=== PATIENT | female | born 1990 | race Caucasian/White ===

== ENCOUNTER 2016-07-06 16:13 | Emergency (ER) | payer MEDICAID ==
[2016-07-06 16:27] VITALS: BP 144/68
[2016-07-06] MEDS ORDERED: NORMAL SALINE 1,000 ML IV ONE (17:24)
[2016-07-06] MEDS ORDERED: METOCLOPRAMIDE HCL 5 MG/ML VIAL IV ONE (17:24)
[2016-07-06] MEDS ORDERED: NALBUPHINE HCL 20 MG/ML AMPUL IV ONE (17:24)
[2016-07-06 17:29] LABS: Hematocrit 38.8 % (37.0-47.0); Hemoglobin 13.3 gm/dL (12.5-16.0); Mean Cell Volume 83.6 fl (78-100); Mean Corpuscular Hemoglobin 28.7 pg (27-31); Mean Corpuscular Hgb Conc 34.3 g/dl (32-36); Mean Platelet Volume 9.6 fl (6.0-9.5); Neutrophil # 10.3 K/mm3 (1.3-6.0); Neutrophil % 79.4 % (42-75.0); Platelet Count 299 K/mm3 (150-450); Red Blood Count 4.64 M/mm3 (4.2-5.4); Red Cell Distribution Width 13.3 % (11.5-14.0)
[2016-07-06 17:38] LABS: Albumin * 3.9 gm/dl (3.4-5.0); Anion Gap 18.5 mmol/L (6.8-13.8); BUN/Creatinine Ratio 10.4 (9.0-21.6); Bilirubin, Total 0.6 mg/dL (0.0-1.1); Ca. Corrected For Albumin 9.2 mg/dL (8.4-10.2); Calcium * 9.4 mg/dL (7.9-10.9); Carbon Dioxide 21.8 mmol/L (24-32.6); Potassium 3.3 mmol/L (3.4-4.6); Total Protein 7.6 gm/dL (6.2-8.2)
[2016-07-06 18:44] LABS: Urine Appearance Clear; Urine Bilirubin Negative (NEGATIVE); Urine Blood Negative /ul (NEGATIVE); Urine Color Yellow
[2016-07-06 18:45] LABS: Urine Bacteria None Seen; Urine Ketone Large mg/dL (NEGATIVE); Urine Nitrite Negative (NEGATIVE); Urine Protein 15 mg/dL (NEGATIVE); Urine RBC None Seen /hpf (0-5); Urine Urobilinogen Normal (NORMAL); Urine WBC 0-5 /hpf (0-5)
[2016-07-06] MEDS ORDERED: NALBUPHINE HCL 20 MG/ML AMPUL ONE (19:26)
[2016-07-06] MEDS ORDERED: METOCLOPRAMIDE HCL 5 MG/ML VIAL ONE (19:26)
--- NOTE | 2016-07-06 19:47 | ERNOTE ---
Abdominal HPI - Narrative Date of Service: 07/06/16 - General Chief Complaint: Abdominal Pain Time Seen by Provider: 07/06/16 17:16 Source: patient, RN notes reviewed Exam Limitations: no limitations - Immun/Allergies/Home Medications Immunizatons: IMMUNIZATION HX Immunizations Up to Date Yes History of Influenza Vaccine No Hx Pneumococcal Vaccination More Information Required Allergies/Adverse Reactions: Allergies azithromycin [From Zithromax] Allergy (Severe, Verified 07/06/16 16:27) Vomiting potassium clavulanate [From Augmentin] Allergy (Severe, Verified 07/06/16 16:27) amoxicillin trihydrate [From Augmentin] Allergy (Verified 07/06/16 16:27) rash Home Medications: HOME MEDICATIONS Ranitidine HCl [Zantac] 150 mg PO DAILY 08/23/13 [Last Taken 03/09/16] Acebutolol HCl [Sectral] 200 mg PO DAILY #30 capsule 03/19/16 [Last Taken Unknown] - History of Present Illness Narrative: Nina is a 25 year old female who presents to the ED for lower abdominal pain that began 2 days ago and has gradually been worsening. She reports having a positive home test. She is unsure of the date of her LMP. She also reports nausea but no vomiting. She did have diarrhea yesterday as well. She denies any vaginal bleeding. Review of Systems - Review of Systems Constitutional: Present: fatigue, malaise. Absent: fever, chills EYE: Present: no symptoms reported ENT: Present: no symptoms reported Respiratory: Absent: shortness of breath, cough Cardiology: Absent: chest pain, palpitations Gastrointestinal/Abdominal: Present: nausea, diarrhea, abdominal pain, eating less. Absent: vomiting, drinking less Genitourinary: Absent: frequency, dysuria Musculoskeletal: Absent: back pain, muscle pain Skin: Present: no symptoms reported Neurological: Absent: headache, dizziness/light-headedness Endocrine: Present: no symptoms reported Hematologic/Lymphatic: Present: no symptoms reported Psych: Present: no symptoms reported - Patient's Past Medical History Patient History - Medical: Anxiety, Depression, GERD, Migraines, UTI'S, Other Patient History - Cardiac/Respiratory: Hypertension, Other - syncope Patient History - Cancer: No Hx of Cancer Patient History - Surgical Procedures: Back Surgery, , T & A, Other LMP (females 10-50): - Family History Grandfather-Paternal Family History - Medical: No pertinent hx Family History - Cardiac/Respiratory: CHF Family History - Cancer: No Hx of cancer Grandfather-Maternal Family History - Medical: No pertinent hx Family History - Cardiac/Respiratory: Coronary Heart Disease, CHF, Hypertension Family History - Cancer: Lung Grandmother-Maternal Family History - Medical: Diabetes Type 2, Fibromyalgia, Other Family History - Cardiac/Respiratory: Hypertension Family History - Cancer: Cervical, Other - ovarian Mother Family History - Medical: Diabetes Type 2, Other Family History - Cardiac/Respiratory: Hypertension Family History - Cancer: Cervical Sister Family History - Medical: No pertinent hx Family History - Cardiac/Respiratory: Hypertension Family History - Cancer: No Hx of cancer Brother Family History - Medical: ADHD Family History - Cardiac/Respiratory: No pertinent hx Family History - Cancer: No Hx of cancer - Social History Living Situations: home Smoking Status: Never smoker Have you smoked in the past 12 months: No Alcohol Use: rarely Drug Use: none Physical Exam - Physical Exam General Appearance: Present: wd/wn, alert, other - Disheveled, appears uncomfortable Neck: Present: normal inspection, nontender, supple Respiratory: Present: no respiratory distress, normal breath sounds, no accessory muscle use, lungs clear Cardiovascular/Chest: Present: regular rate, rhythm, no murmur, normal peripheral pulses Gastrointestinal/Abdominal: Present: normal bowel sounds, nondistended, soft, tenderness - suprapubic Back Exam: Present: normal inspection, no CVA tenderness Neurological Exam: Present: alert, oriented, normal mood/affect Skin Exam: Present: normal color, warm/dry ED Progress - Results and Orders Patient's Lab Results:: I have reviewed the patient's lab results. - Vital Signs Patient's Vital Signs:: I have reviewed the patient's vital signs. Vital Signs: Vital Signs 07/06/16 16:24 Temperature 36.9 C Pulse Rate 108 H Respiratory 16 Rate Blood Pressure 144/68 O2 Sat by Pulse 100 Oximetry - CT/Ultrasound CT/Ultrasound Narrative: OB US: Single live IUP 10 wks 6 days with FHR 171 EDC 01/26/17 - Progress/Reassessment Chief Complaint: Abdominal Pain Progress:: Improved Departure - Departure Clinical Impression: Abdominal pain during in first trimester Disposition: Home Follow Up Needed Condition: Good Instructions: First Trimester of Additional Instructions: Increase fluid intake OK to take Tylenol for pain Start a vitamin [facility] Return if symptoms worsen Referrals: Elena Mead DO [Staff Physician] -
== END 2016-07-06 20:44 | disposition home or self-care (01) ==
LOC: ER 16:13
DX: O26.891 Other specified pregnancy related conditions, first trimester (principal); Z3A.10 10 weeks gestation of pregnancy; K21.9 Gastro-esophageal reflux disease without esophagitis; I10 Essential (primary) hypertension

== ENCOUNTER 2016-08-26 20:00 | Emergency (ER) | payer MEDICAID ==
--- OUTSIDE RECORDS SUMMARY | 2016-08-26 20:31 | XMS REPORT | Continuity of Care Document ---
:1990 Author Organization [facility] ([facility]) Address [address] [place] [address] Phone [phone] Care Team Providers Name Role Phone Bandar Villegas Primary Care Provider [phone] Source Comments This disclosure is being made pursuant to the Care Everywhere program, applicable federal and state laws, and may not contain all informaitonavailable regarding this patient.[facility] ([facility]) Active Allergies and Adverse Reactions Allergen Noted Date Severity Reactions Comments Amoxicillin Urticaria (Hives) Azithromycin Nausea & Vomiting Potassium Clavulanate Urticaria (Hives) Current Medications Prescription Sig. Disp. Refills Start Date End Date Status montelukast (SINGULAIR) 10 take 10 mg by Active mg tablet mouth daily. loratadine (CLARITIN) 10 mg Take 10 mg by Active tablet mouth daily. norethindrone (NOR-Q.D.) Take 1 Tab by Active 0.35 mg tablet mouth daily. ranitidine (ZANTAC) 150 mg Take 150 mg by Active tablet mouth daily. SERTRALINE HCL (ZOLOFT PO) Take by mouth Active daily. CARISOPRODOL (SOMA PO) Take by mouth Active daily. acebutolol (SECTRAL) 200 mg Take 200 mg by Active capsule mouth daily. SODIUM CHLORIDE PO Take 3 Tabs by Active mouth daily. BISACODYL (DULCOLAX PO) Take by mouth Active daily. Vitamin C-Vitamin E Take by mouth Active (CRANBERRY CONCENTRATE) cap daily. cholecalciferol (VITAMIN Take 5,000 Units Active D3) 5,000 unit tablet by mouth daily. ibuprofen (IBUPROFEN IB) Take 200 mg by Active 200 mg tablet mouth every 6 hours as needed. Active Problems Problem Noted Date Headache(784.0) 09/27/2008 Urinary tract infection, site not specified 09/08/2008 Other constipation 01/27/2007 Chest pain, unspecified 10/01/2004 Arthrodesis status 11/13/2003 Pain in thoracic spine 10/16/2003 Scoliosis (and kyphoscoliosis), idiopathic 12/08/2002 Immunizations Name Dates Previously Given Next Due Hepatitis B, unspecified 02/01/1996 Social History Tobacco Use Types Packs/Day Years Used Date Never Smoker Last Filed Vital Signs Vital Sign Reading Time Taken Blood Pressure 118/73 12/21/2008 9:23 AM CDT Pulse 76 12/21/2008 9:23 AM CDT Temperature 37.2 C (98.96 F) 10/27/2008 3:41 PM CDT Respiratory Rate 16 02/09/2007 8:46 AM CDT Height 1.71 m (5' 7.32") 05/05/2008 11:00 AM CDT Weight 62.5 kg (137 lb 12.6 oz) 12/21/2008 9:23 AM CDT Body Mass Index 21.37 12/21/2008 9:23 AM CDT Oxygen Saturation - - Plan of Care Health Maintenance Due Date Last Done Comments Hepatitis B Vaccine (2 of 3 - Primary Series) 02/29/1996 02/01/1996 Tdap Vaccine 1999 Cervical Cancer Screening 2006 Lipid Disorder Screening 2006 MMR Vaccine 2006 Td Vaccine 2006 Varicella Vaccine (1 of 2 - Adult - No Evidence of 2006 Immunity) Influenza Vaccine: Seasonal (#1) 02/04/2016 Results from Last 3 Months Not on file
[2016-08-26] MEDS ORDERED: diphenhydrAMINE HCL 50 MG/ML VIAL IM ONE (21:12)
[2016-08-26] MEDS ORDERED: METOCLOPRAMIDE HCL 5 MG/ML VIAL IV ONE (21:12)
[2016-08-26] MEDS ORDERED: diphenhydrAMINE HCL 50 MG/ML VIAL ONE (21:19)
[2016-08-26] MEDS ORDERED: METOCLOPRAMIDE HCL 5 MG/ML VIAL ONE (21:19)
[2016-08-26] MEDS ORDERED: METOCLOPRAMIDE HCL 5 MG/ML VIAL IM ONE (21:22)
--- NOTE | 2016-08-26 21:22 | ERNOTE ---
Headache ER HPI - Narrative Date of Service: 08/26/16 - General Presenting Symptoms: headache Time Seen by Provider: 08/26/16 20:55 Source: patient, RN notes reviewed Exam Limitations: no limitations - Immun/Allergies/Home Medications Immunizations: IMMUNIZATION HX Immunizations Up to Date Yes History of Influenza Vaccine No Hx Pneumococcal Vaccination More Information Required Allergies/Adverse Reactions: Allergies azithromycin [From Zithromax] Allergy (Severe, Verified 07/06/16 16:27) Vomiting potassium clavulanate [From Augmentin] Allergy (Severe, Verified 07/06/16 16:27) amoxicillin trihydrate [From Augmentin] Allergy (Verified 07/06/16 16:27) rash Home Medications: HOME MEDICATIONS Ranitidine HCl [Zantac] 150 mg PO DAILY 08/23/13 [Last Taken 03/09/16] Acebutolol HCl [Sectral] 200 mg PO DAILY #30 capsule 03/19/16 [Last Taken Unknown] - History of Present Illness Narrative: 25 y/o female ambulatory to the ED for a headache that began earlier today. The headache was proceeded by an episode of wavy lines in her vision that resolved when the pain began. She has taken Tylenol without improvement. She has had migraine headaches in the past, but never with an aura. She is 19 weeks and was just seen in the walk in clinic yesterday for diarrhea. Date (Duration): 08/26/16 Time (Timing): 08:00 Timing of Headache: abrupt, still present, constant Context Headache: Present: new onset Quality: Present: achy, stabbing Severity Maximum: Present: severe Severity-Currently: Present: moderate Headache frequency: Present: occasional headaches, similar to previous headache Associated Symptoms: Reports: nausea, fatigue. Denies: fever/chills, vomiting, nasal congestion, nasal drainage, facial pain, weakness, numbness/tingling, confusion, light-headedness, dizziness, neck pain/stiffness Review of Systems - Review of Systems Constitutional: Present: recent illness, fatigue. Absent: fever, chills EYE: Present: blurred vision. Absent: eye pain, eye discharge ENT: Present: See HPI Respiratory: Absent: cough, wheezing Cardiology: Present: no symptoms reported Gastrointestinal/Abdominal: Present: nausea. Absent: vomiting, eating less, drinking less Genitourinary: Present: no symptoms reported Musculoskeletal: Absent: muscle pain, neck pain Skin: Absent: rash, lesions Neurological: Present: See HPI Endocrine: Present: no symptoms reported Hematologic/Lymphatic: Present: no symptoms reported Psych: Present: no symptoms reported - Patient's Past Medical History Patient History - Medical: Anxiety, Depression, GERD, Migraines, UTI'S, Other Patient History - Cardiac/Respiratory: No pertinent hx Patient History - Cancer: No Hx of Cancer Patient History - Surgical Procedures: Back Surgery, , T & A, Other Patient History - Other: None LMP (females 10-50): - Family History Grandfather-Paternal Family History - Medical: No pertinent hx Family History - Cardiac/Respiratory: CHF Grandfather-Maternal Family History - Medical: No pertinent hx Family History - Cardiac/Respiratory: Coronary Heart Disease, CHF, Hypertension Grandmother-Maternal Family History - Medical: Diabetes Type 2, Fibromyalgia, Other Family History - Cardiac/Respiratory: Hypertension Mother Family History - Medical: Diabetes Type 2, Other Family History - Cardiac/Respiratory: Hypertension Sister Family History - Medical: No pertinent hx Family History - Cardiac/Respiratory: Hypertension Brother Family History - Medical: ADHD Family History - Cardiac/Respiratory: No pertinent hx - Social History Living Situations: home Abuse History: No History of abuse Psych History: Hx of Anxiety, Hx of Depression Alcohol Use: rarely Drug Use: none - Immunizations Immunizations Up to Date: Yes Hx Pneumococcal Vaccination: More Information Required to Determine History of Influenza Vaccine: No Physical Exam - Physical Exam General Appearance: Present: wd/wn, alert, no apparent distress Eye Exam: Normal inspection: bilateral, PERRL: bilateral, EOMI: bilateral Ears, Nose, Throat: Present: normal ENT inspection, hearing grossly normal, normal pharynx. Absent: abnormal TM (R), abnormal TM (L), nasal congestion, sinus pain/drainage Neck: Present: normal inspection, nontender, supple, full range of motion Respiratory: Present: no respiratory distress, normal breath sounds, no accessory muscle use, lungs clear Cardiovascular/Chest: Present: regular rate, rhythm, no murmur, normal peripheral pulses Extremity Exam: Present: normal inspection, no edema Neurological Exam: Present: alert, oriented, normal mood/affect, no motor/ sensory deficits Skin Exam: Present: normal color, warm/dry ED Progress - Vital Signs Patient's Vital Signs:: I have reviewed the patient's vital signs. - Progress/Reassessment Chief Complaint: Headache Progress:: Improved Departure Clinical Impression: Migraine Qualifiers: Migraine type: with aura Status migrainosus presence: without status migrainosus Intractability: not intractable Qualified Code(s): G43.109 - Migraine with aura, not intractable, without status migrainosus - Departure Disposition: Home Follow Up Needed Condition: Stable Instructions: Migraine Headache, [id number], Form - Excuse from Work, School , or Physical Activity Referrals: Marly Samaniego MD [Primary Care Provider] -
[2016-08-26 22:03] VITALS: BP 138/70
== END 2016-08-26 21:50 | disposition home or self-care (01) ==
LOC: ER 20:00
DX: G43.109 Migraine with aura, not intractable, without status migrainosus (principal); K21.9 Gastro-esophageal reflux disease without esophagitis

== ENCOUNTER 2017-01-16 14:41 | Inpatient (IN) | payer MEDICAID ==
[2017-01-16] MEDS ORDERED: RINGERS SOLUTION,LACTATED 1,000 ML IV PRN ×2 (17:00)
[2017-01-16] MEDS ORDERED: OXYTOCIN 20 UNITS in RINGERS SOLUTION,LACTATED 1,000 ML IV ONE ×2 (17:00→22:36)
[2017-01-16] MEDS ORDERED: ceFAZolin SODIUM/DEXTROSE,ISO 2 GM/50 ML BAG IV ONE (17:46)
[2017-01-16] MEDS ORDERED: RINGERS SOLUTION,LACTATED 1,000 ML IV ONE ×2 (22:00→23:15)
[2017-01-16] MEDS ORDERED: ONDANSETRON HCL/PF 2 MG/ML VIAL IV PRN (23:39)
[2017-01-16] MEDS ORDERED: BISACODYL 10 MG SUPP.RECT RC PRN (23:39)
[2017-01-16] MEDS ORDERED: oxyCODONE HCL/ACETAMINOPHEN 1 TAB TABLET PO PRN (23:39)
[2017-01-16] MEDS ORDERED: SENNOSIDES 8.6 MG TABLET PO PRN (23:39)
[2017-01-16] MEDS ORDERED: SIMETHICONE 80 MG TAB.CHEW PO PRN (23:39)
--- NOTE | 2017-01-16 23:46 | OR ---
Operative Report - Dictated Report Narrative: Indication: 26-year-old 3 para 2 at 38-2/7 weeks found to have oligohydramnios on routine follow-up growth ultrasound and possible premature ruptured membranes. Pre Operative Diagnosis: 38-2/7 week intrauterine , oligohydramnios with possible premature ruptured membranes, prior section 2 Post Operative Diagnosis: Same. Procedure: Repeat low transverse section. Surgeon: Tao Reis DO Core Worker: OR Staff Anesthesia: Spinal, TAP block requested for post operative pain control Estimated Blood Loss: 300 mL Urine Output: 350 mL clear urine Fluids Replacement: 1600 mL Drains: Regalado to gravity Surgical Complications: None Specimens: Placenta to freezer Findings: Female in cephalic presentation born at 2236 on 01/16/2019 with Apgars 8 and 9, weighing 3107 grams. Right arm cord x 1. Normal uterus, tubes, ovaries Technique: The patient was taken to the operating room and placed in dorsal supine position with a left lateral tilt. After adequate spinal anesthesia, regalado catheter inserted, SCDs placed, and 2 g of Ancef given preoperatively, the abdominal cavity was entered using sharp and blunt dissection. Two rolled laps were placed in the pericolic gutters on either side of the uterus. A transverse incision was made in the lower uterine segment and extended laterally and upwardly with digital traction. Clear fluid was noted upon amniotomy. The infant was delivered easily. The cord was clamped and cut and was handed off to awaiting interceptor operator. The placenta was allowed to deliver spontaneously. The uterus was cleared of clot and debris. Uterine incision was closed with 0 Vicryl using a running stitch. A second imbricating layer was placed. Excellent hemostasis was noted. The rolled laps were removed from the abdominal cavitiy. The peritoneum was closed with a running 3- 0 Monocryl. The same suture was used to approximate the rectus and pyramidalis muscles. The fascia was closed with a running 0 Vicryl. The subcutaneous layer was closed with a running 3-0 Monocryl. The same suture was used to approximate the subdermal layer. The skin was closed with a running 4-0 Monocryl and Dermabond. Sponge, lap, needle, and instrument count were correct x 2. Disposition: To post anesthesia care unit in good condition
[2017-01-17] MEDS: IBUPROFEN 800 MG TABLET PO PRN ×4 (00:05→23:30)
[2017-01-17] MEDS: oxyCODONE HCL/ACETAMINOPHEN 1 TAB TABLET PO PRN ×5 (00:05→23:30)
[2017-01-17] MEDS: ENOXAPARIN SODIUM 40 MG/0.4 ML SYRG SC SCH (08:18)
[2017-01-17] MEDS: ACEBUTOLOL HCL 200 MG CAPSULE PO SCH (08:25)
[2017-01-17] MEDS: DOCUSATE SODIUM 100 MG CAPSULE PO SCH ×2 (08:25→21:02)
--- NOTE | 2017-01-17 09:12 | PN ---
Subjective - Date and Time Seen Date: 01/17/17 Time: 09:11 Objective - Vitals Vitals: Last Vital Signs Temp 36.0 C L 01/17/17 03:39 Pulse 109 H 01/17/17 03:39 Resp 18 01/17/17 03:39 BP 132/67 01/17/17 03:39 Pulse Ox 97 01/17/17 03:39 Patient denies complaints. Tolerating regular diet. Ambulating without difficulty. Pain well controlled. Lochia wnl. Abdomen - soft, appropriately tender Incision - clean, dry, intact Uterus - firm, at umbilicus -1 No calf tenderness Impression: Post op day #1 s/p repeat section done 4 days early due to oligohydramnios with possible ruptured membranes. Nasal depressive syncope- stable. Plan: Continue routine post-operative/ care Cauti Physician Documentation - Urinary Catheter Management Urethral (Yarbrough) Date of Insertion: 01/16/17 Time of Insertion: 22:15
[2017-01-17] MEDS: PRENATAL VIT#96/FERROUS FUM/FA 1 TAB TABLET PO SCH (21:02)
[2017-01-17] MEDS: VITAMIN B COMP W-C 1 TAB TABLET PO SCH (21:07)
--- NOTE | 2017-01-18 09:08 | PN ---
Subjective - Date and Time Seen Date: 01/18/17 Time: 09:07 Objective - Vitals Vitals: Last Vital Signs Temp 36.8 C 01/18/17 01:00 Pulse 75 01/18/17 01:00 Resp 16 01/18/17 01:00 BP 135/78 01/18/17 01:00 Pulse Ox 98 01/18/17 01:00 Patient denies complaints. Ambulating well. Tolerating regular diet. Pain well controlled. Lochia wnl. Abdomen - soft, appropriately tender Incision - clean, dry, intact Uterus - firm, at umbilicus -2 No calf tenderness Impression: Post op day #2 s/p repeat section. Vasodepressive syncope - stable Plan: Continue routine post-operative/ care Cauti Physician Documentation - Urinary Catheter Management Urethral (Yarbrough) Date of Insertion: 01/16/17 Time of Insertion: 22:15 Date of Removal: 01/17/17 Time of Removal: 11:48
[2017-01-18] MEDS: ENOXAPARIN SODIUM 40 MG/0.4 ML SYRG SC SCH (09:23)
[2017-01-18] MEDS: IBUPROFEN 800 MG TABLET PO PRN ×2 (09:25→18:52)
[2017-01-18] MEDS: oxyCODONE HCL/ACETAMINOPHEN 1 TAB TABLET PO PRN ×2 (09:25→18:51)
[2017-01-18] MEDS: ACEBUTOLOL HCL 200 MG CAPSULE PO SCH (09:25)
[2017-01-18] MEDS: DOCUSATE SODIUM 100 MG CAPSULE PO SCH ×2 (09:25→21:02)
[2017-01-18] MEDS: PRENATAL VIT#96/FERROUS FUM/FA 1 TAB TABLET PO SCH (21:02)
[2017-01-18] MEDS: VITAMIN B COMP W-C 1 TAB TABLET PO SCH (21:02)
[2017-01-19] MEDS: oxyCODONE HCL/ACETAMINOPHEN 1 TAB TABLET PO PRN ×2 (08:11→12:29)
[2017-01-19] MEDS: IBUPROFEN 800 MG TABLET PO PRN (08:11)
[2017-01-19] MEDS: ENOXAPARIN SODIUM 40 MG/0.4 ML SYRG SC SCH (08:52)
[2017-01-19] MEDS: ACEBUTOLOL HCL 200 MG CAPSULE PO SCH (08:52)
[2017-01-19] MEDS: DOCUSATE SODIUM 100 MG CAPSULE PO SCH (08:52)
--- NOTE | 2017-01-19 09:17 | PN ---
Subjective - Date and Time Seen Date: 01/19/17 Time: 09:16 Objective - Vitals Vitals: Last Vital Signs Temp 36.6 C 01/19/17 03:00 Pulse 72 01/19/17 03:00 Resp 17 01/19/17 03:00 BP 124/70 01/19/17 03:00 Pulse Ox 95 01/19/17 03:00 Patient denies complaints. Ambulating without difficulty. Tolerating regular diet. Pain well controlled. Lochia wnl. Abdomen - soft, appropriately tender Incision - clean, dry, intact Uterus - firm, at umbilicus -3 No calf tenderness Impression: Post op day #3 s/p repeat section. Vasodepressive syncope -stable Plan: Routine discharge instructions Cauti Physician Documentation - Urinary Catheter Management Urethral (Yarbrough) Date of Insertion: 01/16/17 Time of Insertion: 22:15 Date of Removal: 01/17/17 Time of Removal: 11:48
[2017-01-19 09:25] VITALS: BP 112/73
== END 2017-01-19 15:45 | disposition home or self-care (01) | DRG 765 ==
LOC: RAD 14:41 → OB 16:45 → MS 01-18 18:25
PROVIDERS: ADMIT Obstetrics & Gynecology; ATTEND Obstetrics & Gynecology
PROC: 4A1HXCZ Monitoring of Products of Conception, Cardiac Rate, External Approach (ICD-10-PCS; 2017-01-16)
PROC: 10D00Z1 Extraction of Products of Conception, Low, Open Approach (ICD-10-PCS; principal; 2017-01-16 21:53)
DX: O41.03X0 Oligohydramnios, third trimester, not applicable or unspecified (principal); O10.02 Pre-existing essential hypertension complicating childbirth; O69.81X0 Labor and delivery complicated by cord around neck, without compression, not applicable or unspecified; O34.211 Maternal care for low transverse scar from previous cesarean delivery; K21.9 Gastro-esophageal reflux disease without esophagitis; J45.909 Unspecified asthma, uncomplicated; Z3A.38 38 weeks gestation of pregnancy; Z37.0 Single live birth

== ENCOUNTER 2017-01-27 14:58 | Emergency (ER) | payer MEDICAID ==
[2017-01-27 15:21] VITALS: BP 116/80
[2017-01-27] MEDS ORDERED: KETOROLAC TROMETHAMINE 30 MG/ML VIAL IM ONE (15:21)
[2017-01-27] MEDS ORDERED: KETOROLAC TROMETHAMINE 30 MG/ML VIAL ONE (15:23)
--- NOTE | 2017-01-27 15:34 | ERNOTE ---
Headache ER HPI - Narrative Date of Service: 01/27/17 - General Presenting Symptoms: "migraine" Time Seen by Provider: 01/27/17 15:05 Source: patient Exam Limitations: no limitations - Immun/Allergies/Home Medications Immunizations: IMMUNIZATION HX Immunizations Up to Date Yes History of Influenza Vaccine No Hx Pneumococcal Vaccination More Information Required Allergies/Adverse Reactions: Allergies azithromycin [From Zithromax] Allergy (Severe, Verified 01/27/17 15:05) Vomiting potassium clavulanate [From Augmentin] Allergy (Severe, Verified 01/27/17 15:05) amoxicillin trihydrate [From Augmentin] Allergy (Verified 01/27/17 15:05) rash Home Medications: HOME MEDICATIONS Acebutolol HCl [Sectral] 200 mg PO DAILY #30 capsule 03/19/16 [Last Taken ] Vit#96/Ferrous Fum/FA [ S] 1 tab PO HS 01/16/17 [Last Taken ] Vitamin B Complex [Balanced B-50] 1 each PO HS 01/16/17 [Last Taken 01/15/17] Ibuprofen [Motrin] 200 - 800 mg PO Q6H PRN #100 tab 01/19/17 [Last Taken Unknown ] Ranitidine HCl [Zantac 75] 75 mg PO DAILY 01/27/17 [Last Taken Unknown] - History of Present Illness Narrative: Patient presents with a "migraine". She has had this headache for 6 days. It is the top of her head. She relates a long history of headaches since being a teenager. She relates recent . This SUN is like her prior HAs. She had been on Topamax in the past but has not been on it for sometime. She relates reactions to SUN prophylactics so does not take them. Had IV meds for this SUN at the infusion center but not helping. Nausea but no vomiting. No fever. no focal N/T/W. This is not the worse SUN of her life. She has had longer lasting USN's but it has been a while. SUN not worse with standing or sitting up, not better with lying flat. No sinus Sx. Timing of Headache: gradual, other - not thunderclap Context Headache: Present: other - recurrent HAs since a teenager Severity Maximum: Present: severe Headache frequency: Present: chronic headaches Modifying Factors - (Improves): Reports: other - nothing Modifying Factors - (Worsens): Reports: other - nothing Associated Symptoms: Reports: nausea. Denies: fever/chills, vomiting, nasal congestion, facial pain, weakness, numbness/tingling, vision changes, light- headedness, loss of consciousness, neck pain/stiffness Exacerbated by:: Reports: light Prior Treament: Reports: other - not worst SUN of life or the longest lasting Review of Systems - Review of Systems Constitutional: Absent: fever EYE: Absent: vision changes ENT: Absent: nose congestion, sore throat Respiratory: Absent: shortness of breath Cardiology: Absent: chest pain Skin: Absent: rash Neurological: Absent: weakness - Patient's Past Medical History Patient History - Medical: Anxiety, Depression, GERD, Migraines, UTI'S, Other Patient History - Cardiac/Respiratory: No pertinent hx Patient History - Cancer: No Hx of Cancer Patient History - Surgical Procedures: Back Surgery, , T & A, Other Patient History - Other: None - Family History Grandfather-Paternal Family History - Medical: No pertinent hx Family History - Cardiac/Respiratory: CHF Grandfather-Maternal Family History - Medical: No pertinent hx Family History - Cardiac/Respiratory: Coronary Heart Disease, CHF, Hypertension Grandmother-Maternal Family History - Medical: Diabetes Type 2, Fibromyalgia, Other Family History - Cardiac/Respiratory: Hypertension Mother Family History - Medical: Diabetes Type 2, Other Family History - Cardiac/Respiratory: Hypertension Sister Family History - Medical: No pertinent hx Family History - Cardiac/Respiratory: Hypertension Brother Family History - Medical: ADHD Family History - Cardiac/Respiratory: No pertinent hx - Social History Living Situations: home Abuse History: No History of abuse Psych History: Hx of Anxiety, Hx of Depression Smoking Status: Never smoker Have you smoked in the past 12 months: No Alcohol Use: rarely Drug Use: none - Immunizations Immunizations Up to Date: Yes Hx Pneumococcal Vaccination: More Information Required to Determine History of Influenza Vaccine: No Physical Exam - Physical Exam General Appearance: Present: alert, no apparent distress Head Exam: Present: normal inspection, no evidence of injury Eye Exam: Normal inspection: bilateral, PERRL: bilateral Ears, Nose, Throat: Present: normal ENT inspection, other - no temporal artery tenderness. no sinus tenderness Neck: Present: normal inspection, nontender, supple, full range of motion, other - no meningeal signs Respiratory: Present: no respiratory distress, normal breath sounds Cardiovascular/Chest: Present: regular rate, rhythm Gastrointestinal/Abdominal: Present: normal bowel sounds, nontender, soft Back Exam: Present: normal inspection, normal range of motion Extremity Exam: Present: normal inspection, normal range of motion, no edema Neurological Exam: Present: alert, normal mood/affect, no motor/sensory deficits , childrens club attendant II-XII nml as tested. Absent: motor weakness Skin Exam: Present: normal color, warm/dry ED Progress - Vital Signs Patient's Vital Signs:: I have reviewed the patient's vital signs. Vital Signs: Vital Signs 01/27/17 01/27/17 01/27/17 14:58 15:01 15:20 Temperature 36.7 C 36.7 C Pulse Rate 71 Respiratory 12 Rate Blood Pressure 118/70 133/91 116/80 O2 Sat by Pulse 98 Oximetry - Progress/Reassessment Chief Complaint: Headache Progress Note-Subjective: 01/27/17 15:32 Nothign would suggest post spinal SUN. No neuro deficits. Nothing to suggest SAH, meningitis or need for emergent imaging. Long Hx of SUN and not worst SUN of life or longest lasting. nothing to suggest HTN or meningitis. Non-toxic, no distress. She wishes to continue breast feeding and does not want anything that would hinder this. She has appt with PCP in 2 days. she feels like going home. I do not feel HCT or spinal tap would be indicated at this time. She is agreeable to plan. i discussed warning signs and reasons to return as well as the need for close f/u. Departure Clinical Impression: Headache - Departure Disposition: Home self-care Condition: Stable Instructions: Migraine Headache, [id number] Additional Instructions: Rest. Fluids. keep your appointment with your doctor. Return for fever, vomiting, weakness or if your condition worsens or changes in any way. Referrals: Marly Samaniego MD [Primary Care Provider] -
== END 2017-01-27 15:49 | disposition home or self-care (01) ==
LOC: ER 14:58
DX: R51 Headache (principal); K21.9 Gastro-esophageal reflux disease without esophagitis; Z87.440 Personal history of urinary (tract) infections

== ENCOUNTER 2020-08-08 09:25 | Inpatient (IN) ==
[2020-08-08] MEDS ORDERED: DEXTROSE 5%-LACTATED RINGERS 1,000 ML IV PRN (09:38)
[2020-08-08] MEDS ORDERED: Oxytocin/Ringers Lactate 20 UNITS/1,000 ML BAG IV ONE (09:38)
[2020-08-08] MEDS ORDERED: RINGER'S SOLUTION,LACTATED 1,000 ML IV PRN (09:38)
[2020-08-08] MEDS ORDERED: diphenhydrAMINE HCL 50 MG/ML VIAL IV ONE (09:41)
[2020-08-08] MEDS ORDERED: METOCLOPRAMIDE HCL 5 MG/ML VIAL IV PRN (09:41)
[2020-08-08] MEDS ORDERED: BUPIVACAINE HCL/EPINEPHRINE 50 ML VIAL IJ ONE (10:22)
[2020-08-08] MEDS ORDERED: EPINEPHrine 1 MG/ML AMPUL ONE (10:22)
[2020-08-08] MEDS ORDERED: diphenhydrAMINE HCL 50 MG/ML VIAL ONE (10:57)
[2020-08-08 10:59] LABS: Hemoglobin 11.1 gm/dL (12.5-16.0); Mean Cell Volume 86.3 fl (78-100); Mean Corpuscular Hemoglobin 29.9 pg (27-31); Mean Corpuscular Hgb Conc 34.7 g/dl (32-36); Mean Platelet Volume 10.1 fl (8-12.5); Neutrophil # 9.7 K/mm3 (1.3-6.0); Neutrophil % 73.4 % (42-75.0); Platelet Count 211 K/mm3 (150-450); Red Blood Count 3.71 M/mm3 (4.2-5.4); Red Cell Distribution Width 13.8 % (11.5-14.0); White Blood Count 13.2 K/mm3 (4.0-10.5)
[2020-08-08 11:14] LABS: Albumin * 2.5 gm/dl (3.4-5.0); BUN/Creatinine Ratio 9.8 (9.0-21.6); Bilirubin, Total 0.4 mg/dL (0.0-1.1); Ca. Corrected For Albumin 8.9 mg/dL (8.4-10.2); Total Protein 5.8 gm/dL (6.2-8.2)
[2020-08-08 11:14] LABS: Random Urine Total Protein 493.5 mg/dL (0-12)
[2020-08-08] MEDS ORDERED: LIDOCAINE HCL 20 ML VIAL ONE ×2 (11:39→12:05)
[2020-08-08] MEDS ORDERED: MAGNESIUM SULFATE IN WATER 1,000 ML IV PRN ×2 (11:44→13:22)
[2020-08-08] MEDS ORDERED: MAGNESIUM SULFATE IN WATER 50 ML, MAGNESIUM SULFATE IN WATER 50 ML IV ONE ×2 (11:44)
[2020-08-08] MEDS ORDERED: POTASSIUM CHLORIDE 20 MEQ TABLET.SA PO ONE ×2 (11:45→13:22)
[2020-08-08] MEDS ORDERED: PROPOFOL VIAL IV ONE (12:05)
[2020-08-08] MEDS ORDERED: NORMAL SALINE 20 ML VIAL ONE (12:06)
[2020-08-08] MEDS ORDERED: SUCCINYLCHOLINE CHLORIDE 20 MG/ML VIAL ONE (12:06)
[2020-08-08] MEDS ORDERED: ONDANSETRON HCL/PF 2 MG/ML VIAL ONE (12:48)
[2020-08-08] MEDS ORDERED: ONDANSETRON HCL/PF 2 MG/ML VIAL IV PRN (13:22)
[2020-08-08] MEDS ORDERED: SENNOSIDES 8.6 MG TABLET PO PRN (13:22)
[2020-08-08] MEDS ORDERED: BISACODYL 10 MG SUPP.RECT RC PRN (13:22)
[2020-08-08] MEDS ORDERED: SIMETHICONE 80 MG TAB.CHEW PO PRN (13:22)
--- NOTE | 2020-08-08 13:29 | OR ---
Operative Report - Dictated Report Narrative: Indication: 29-year-old 5 para 3 with prior section x3 presents to labor and delivery at 38 weeks with preeclampsia with severe features. status: Urgent Pre Operative Diagnosis: 38-week intrauterine . Prior section x3. Preeclampsia with severe features. Post Operative Diagnosis: Same. Procedure: Repeat low transverse section. Surgeon: Tao Reis DO Production Support Supervisor: OR Staff Anesthesia: Failed spinal anesthesia, general endotracheal TAP block Estimated Blood Loss: 500 mL Urine Output: 150 mL clear urine Fluids Replacement: 1800 mL of crystalloid Drains: Regalado to gravity Surgical Complications: None Specimens: Placenta to pathology Findings: Male born in cephalic presentation at 1223 with Apgars 7 and 7, weighing 3285 g. Normal uterus, tubes, ovaries Technique: The patient was taken to the operating room and placed in dorsal supine position with a left lateral tilt. After adequate general anesthesia, regalado catheter inserted, SCDs placed, and 2 g of Ancef given preoperatively, the abdominal cavity was entered using sharp and blunt dissection. Two rolled laps were placed in the pericolic gutters on either side of the uterus. A transverse incision was made in the lower uterine segment and extended laterally and upwardly with digital traction. Clear fluid was noted upon amniotomy. The was delivered easily. The cord was clamped and cut and infant was handed off to awaiting automatic lathe operator. The placenta was allowed to deliver spontaneously. The uterus was cleared of clot and debris. Uterine incision was closed with 0 Vicryl using a running stitch. A second imbricating layer was placed. A figure of 8 suture was placed in the right corner to provide excellent hemostasis. The rolled laps were removed from the abdominal cavitiy. The peritoneum was closed with a running 3-0 Monocryl. The same suture was used to approximate the rectus and pyramidalis muscles. The fascia was closed with a running 0 Vicryl. The subcutaneous layer was closed with a running 3-0 Monocryl. The same suture was used to approximate the subdermal layer. The skin was closed with a running 4-0 Monocryl and Dermabond. Sponge, lap, needle, and instrument count were correct x 2. Disposition: To post anesthesia care unit in good condition History for MU History for MU Definition: * The number of deliveries resulting in a live the patient experienced prior to current hospitalization * The previous delivery of live twins or any live multiple gestation is considered one live event. *If primagravida or nulliparous is documented select zero for the number of previous live births. Live Events: Live Events: 3
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
--- NOTE | 2020-08-08 13:50 | ANES ---
Post Anesthesia Assessment - Vital Signs Vitals: Last Vital Signs Temp 36.8 C 08/08/20 13:45 Pulse 114 H 08/08/20 13:45 Resp 18 08/08/20 13:45 BP 153/72 H 08/08/20 13:45 Pulse Ox 98 08/08/20 13:45 Airway Patency: Normal - Mental Status Level Of Consciousness: Awake - Pain Level Pain Score: 4 - N/V Assessment Nausea/Vomiting Presence: None Dehydration:: No
--- NOTE | 2020-08-08 13:50 | ANES ---
Post Anesthesia Discharge - Transfer of Care Transfer of Care handoff given to nurse: Yes - Discharge from PACU Discharge from PACU when meets criteria: Yes
--- NOTE | 2020-08-08 13:53 | ANES ---
Anesthesia Procedure Note Procedure Note: ANESTHESIA PROCEDURE NOTE Date of procedure: 08/08/2020. Time of procedure: 1310. Performed by: Naren Chatman CRNA Brewing Director: Sulema Zimmerman RN . Preprocedure diagnosis: Previous section. Post procedure diagnosis: Same. Procedure: Ultrasound-guided bilateral tap Indications: Post operative analgesia. Findings: Patient was given a general anesthetic with endotracheal intubation for section. Attempted spinal was unsuccessful. After procedure, patient's right abdominal wall was prepped with ChloraPrep. Ultrasound utilized to identify the fascial layer between the internal oblique and transabdominus muscles. A 4 inch 20-gauge regional block needle was advanced under ultrasound guidance until tip of needle was placed just distally to fascial layer. 20 mL of 0.25% Marcaine with epinephrine 1-200,000 was injected with adequate spread of local anesthesia noted. Procedure was then repeated on patient's left side. EBL: Minimal. Fluids: N/A. Specimen: N/A. Post procedure condition: The patient tolerated the procedure well. No complications were noted. Thank you for this consultation Naren Chatman CRNA
[2020-08-08] MEDS: DEXTROSE 5%-LACTATED RINGERS 1,000 ML IV PRN (14:04)
[2020-08-08] MEDS ORDERED: KETOROLAC TROMETHAMINE 30 MG/ML VIAL IV ONE (15:01)
[2020-08-08] MEDS ORDERED: POTASSIUM CHLORIDE 10 MEQ TABLET.SA PO SCH (17:00)
[2020-08-08] MEDS: DOCUSATE SODIUM 100 MG CAPSULE PO SCH (20:37)
[2020-08-08] MEDS: oxyCODONE HCL/ACETAMINOPHEN 1 TAB TABLET PO PRN (20:38)
[2020-08-08] MEDS: POTASSIUM CHLORIDE 10 MEQ TABLET.SA PO SCH (20:38)
[2020-08-08] MEDS: IBUPROFEN 800 MG TABLET PO PRN (21:38)
[2020-08-08] MEDS: ENOXAPARIN SODIUM 40 MG/0.4 ML SYRG SC SCH (22:33)
[2020-08-09] MEDS: oxyCODONE HCL/ACETAMINOPHEN 1 TAB TABLET PO PRN ×4 (01:36→19:54)
[2020-08-09] MEDS: IBUPROFEN 800 MG TABLET PO PRN ×3 (03:35→16:25)
[2020-08-09] MEDS ORDERED: ceFAZolin SODIUM 1 GM VIAL IV PRN (06:00)
[2020-08-09] MEDS: DEXTROSE 5%-LACTATED RINGERS 1,000 ML IV PRN (07:26)
--- NOTE | 2020-08-09 08:43 | PN ---
Subjective - Date and Time Seen Date: 08/09/20 Time: 07:50 Objective - Review of Systems Generalized/Overall Review: Reports: No Symptoms Reported EENTM: Reports: No Symptoms Reported Respiratory: Reports: No Symptoms Reported Cardiac: Reports: No Symptoms Reported Abdominal: Reports: Abdominal Pain - normal post op pain controlled with PO pain meds Genitourinary Symptoms: Reports: No Symptoms Reported Musculoskeletal Complaints: Reports: Back Pain - attempted epidural site Neurological: Reports: No Symptoms Reported Skin: Reports: No Symptoms Reported Endocrine: Reports: No Symptoms Reported - Vitals Vitals: Last Vital Signs Temp 36.8 C 08/09/20 06:30 Pulse 83 08/09/20 08:28 Resp 18 08/09/20 08:28 BP 124/81 08/09/20 08:28 Pulse Ox 94 08/09/20 08:28 Blood pressures through the night all within normal limits. Diuresing well. Cumulative I's and O's = 7056ml/15,025ml. - Abnormal Lab Findings Abnormal Lab Findings: Abnormal Lab Results 08/08/20 08/08/20 08/08/20 Range/Units 10:26 10:51 10:51 WBC 13.2 H (4.0-10.5) K/mm3 RBC 3.71 L (4.2-5.4) M/mm3 Hgb 11.1 L (12.5-16.0) gm/dL Hct 32.0 L (37.0-47.0) % Immature Gran % (Auto) 0.80 H (0.001-0.429) % Immature Gran # (Auto) 0.10 H (0.000-0.0310) K/mm3 Lymphocytes % 18.9 L (20-51) % Neutrophils # 9.7 H (1.3-6.0) K/mm3 Potassium 3.0 L (3.4-4.6) mmol/L Carbon Dioxide 23.0 L (24-32.6) mmol/L Est GFR (Non-Af Amer) 192 H D (60-130) mL/min ALT 12 L (19-67) U/L Total Protein 5.8 L (6.2-8.2) gm/dL Albumin 2.5 L (3.4-5.0) gm/dl U Random Total Protein 493.5 H (0-12) mg/dL U [place] Prot/Creat Ratio 2562 H (0-199) mg/gm - Exam Constitutional: Present: Alert, Oriented x3, Cooperative, No distress ENT Exam: Present: hearing grossly normal Respiratory: Present: lungs clear, no respiratory distress Cardiovascular/Chest: Present: normal peripheral pulses, regular rate, rhythm, no edema Abdomen: Present: soft, no rebound tenderness, tender - appropriately /Rectal: Present: Other - Uterus firm, at U-1, incisions - c/d/i Extremity: Present: no pedal edema, no calf tenderness, other - DTR 2-3/4 b/l patella Skin Exam: Present: normal color, warm/dry, no cyanosis Neurologic: Present: alert, normal mood/affect, oriented x 3 Appearance: Present: appropriate appearance, appropriate insight Eye contact: Present: cooperative, good eye contact Cauti Physician Documentation - Urinary Catheter Management Urethral (Yarbrough) Urethral Indwelling: Yes Reason for Continuing Indwelling Catheter: Measure accurate output Date of Insertion: 08/08/20 Time of Insertion: 12:15 Date of Removal: 08/09/20 Time of Removal: 08:00 Assessment/Plan Plan Narrative: Magnesium sulfate DC'd. Yarbrough DC'd. Start regular diet for breakfast and begin ambulation 4 hours after mag DC'd. Continue oral potassium supplement. Recheck potassium tomorrow morning. Goal today is to increase activity to point of tolerance. Continue to monitor closely for return of preeclampsia with severe features. - Problems/Diagnosis (1) S/P repeat low transverse Problem: Acute (2) Preeclampsia, severe Problem: Resolved Qualifiers: Trimester: third trimester Qualified Code(s): O14.13 - Severe pre- eclampsia, third trimester (3) Hypokalemia Problem: Acute (4) Major depressive disorder, recurrent episode, moderate with anxious distress Problem: Chronic (5) Migraine Problem: Inactive Qualifiers: Migraine type: unspecified Status migrainosus presence: without status migrainosus Intractability: not intractable Qualified Code(s): G43.909 - Migraine, unspecified, not intractable, without status migrainosus
[2020-08-09] MEDS: POTASSIUM CHLORIDE 10 MEQ TABLET.SA PO SCH ×2 (09:08→16:26)
[2020-08-09] MEDS: DOCUSATE SODIUM 100 MG CAPSULE PO SCH ×2 (09:08→22:15)
[2020-08-09] MEDS: ENOXAPARIN SODIUM 40 MG/0.4 ML SYRG SC SCH (22:15)
[2020-08-10] MEDS: oxyCODONE HCL/ACETAMINOPHEN 1 TAB TABLET PO PRN ×5 (01:51→22:42)
[2020-08-10] MEDS: IBUPROFEN 800 MG TABLET PO PRN ×3 (01:52→17:37)
[2020-08-10 07:27] LABS: Albumin * 2.2 gm/dl (3.4-5.0); Anion Gap 10.2 mmol/L (6.8-13.8); BUN/Creatinine Ratio 10.7 (9.0-21.6); Bilirubin, Total 0.3 mg/dL (0.0-1.1); Ca. Corrected For Albumin 9.4 mg/dL (8.4-10.2); Calcium * 8.3 mg/dL (7.9-10.9); Potassium 4.2 mmol/L (3.4-4.6); Total Protein 5.6 gm/dL (6.2-8.2)
--- NOTE | 2020-08-10 07:56 | PN ---
Subjective - Date and Time Seen Date: 08/10/20 Time: 07:55 Objective - Vitals Vitals: Last Vital Signs Temp 36.0 C 08/10/20 01:29 Pulse 84 08/10/20 01:29 Resp 16 08/10/20 01:29 BP 133/87 08/10/20 01:29 Pulse Ox 98 08/10/20 01:29 Patient denies complaints. Ambulating well. Tolerating regular diet. Pain well controlled. Bottlefeeding Lochia wnl. Abdomen - soft, appropriately tender Incision -clean, dry, intact uterus - firm, at umbilicus -2 No calf tenderness, DTR-2/4, no clonus. Potassium 4.2. Impression: Post op day #2 s/p repeat section. Preeclampsia with severe features-resolved. Hypokalemia-resolved. Plan: Continue routine post-operative/ care - Abnormal Lab Findings Abnormal Lab Findings: Abnormal Lab Results 08/10/20 Range/Units 06:40 Est GFR (Non-Af Amer) 134 H D (60-130) mL/min ALT 13 L (19-67) U/L Total Protein 5.6 L (6.2-8.2) gm/dL Albumin 2.2 L (3.4-5.0) gm/dl Cauti Physician Documentation - Urinary Catheter Management Urethral (Yarbrough) Urethral Indwelling: Yes Date of Insertion: 08/08/20 Time of Insertion: 12:15 Date of Removal: 08/09/20 Time of Removal: 11:45 Assessment/Plan - Problems/Diagnosis (1) S/P repeat low transverse Problem: Acute (2) Preeclampsia, severe Problem: Resolved Qualifiers: Trimester: third trimester Qualified Code(s): O14.13 - Severe pre- eclampsia, third trimester (3) Hypokalemia Problem: Acute (4) Major depressive disorder, recurrent episode, moderate with anxious distress Problem: Chronic (5) Migraine Problem: Inactive Qualifiers: Migraine type: unspecified Status migrainosus presence: without status migrainosus Intractability: not intractable Qualified Code(s): G43.909 - Migraine, unspecified, not intractable, without status migrainosus
[2020-08-10] MEDS: DOCUSATE SODIUM 100 MG CAPSULE PO SCH ×2 (07:59→21:29)
[2020-08-10] MEDS: POTASSIUM CHLORIDE 10 MEQ TABLET.SA PO SCH (10:21)
[2020-08-10] MEDS: ENOXAPARIN SODIUM 40 MG/0.4 ML SYRG SC SCH (21:29)
[2020-08-11] MEDS: DOCUSATE SODIUM 100 MG CAPSULE PO SCH (08:18)
[2020-08-11] MEDS: IBUPROFEN 800 MG TABLET PO PRN (08:18)
[2020-08-11] MEDS: oxyCODONE HCL/ACETAMINOPHEN 1 TAB TABLET PO PRN (08:18)
[2020-08-11 08:49] VITALS: BP 123/79
--- NOTE | 2020-08-11 10:13 | PN ---
Subjective - Date and Time Seen Date: 08/11/20 Time: 10:11 Objective - Vitals Vitals: Last Vital Signs Temp 37.2 C 08/11/20 08:00 Pulse 88 08/11/20 08:00 Resp 20 08/11/20 08:00 BP 123/79 08/11/20 08:00 Pulse Ox 96 08/11/20 08:00 Patient had a mild headache yesterday which resolved with rest and Tylenol. Breast-feeding. Specifically denies headache, visual changes, or epigastric pain. Ambulating without difficulty. Tolerating regular diet. Pain well controlled. Lochia wnl. Abdomen - soft, appropriately tender Incision -clean, dry, intact uterus - firm, at umbilicus -3 No calf tenderness Impression: Post op day #3 s/p repeat section. Preeclampsia with severe features-resolved. Plan: Routine discharge instructions. Preeclampsia precautions. Cauti Physician Documentation - Urinary Catheter Management Urethral (Yarbrough) Urethral Indwelling: Yes Date of Insertion: 08/08/20 Time of Insertion: 12:15 Date of Removal: 08/09/20 Time of Removal: 11:45 Assessment/Plan - Problems/Diagnosis (1) S/P repeat low transverse Problem: Acute (2) Preeclampsia, severe Problem: Resolved Qualifiers: Trimester: third trimester Qualified Code(s): O14.13 - Severe pre- eclampsia, third trimester (3) Hypokalemia Problem: Resolved (4) Major depressive disorder, recurrent episode, moderate with anxious distress Problem: Chronic (5) Migraine Problem: Resolved Qualifiers: Migraine type: unspecified Status migrainosus presence: without status migrainosus Intractability: not intractable Qualified Code(s): G43.909 - Migraine, unspecified, not intractable, without status migrainosus
--- NOTE | 2020-08-11 10:21 | DS ---
OB Discharge Summary (1) S/P repeat low transverse Status: Acute (2) Preeclampsia, severe Status: Resolved Qualifiers: Trimester: third trimester Qualified Code(s): O14.13 - Severe pre- eclampsia, third trimester (3) Hypokalemia Status: Resolved (4) Major depressive disorder, recurrent episode, moderate with anxious distress Status: Chronic (5) Migraine Status: Resolved Qualifiers: Migraine type: unspecified Status migrainosus presence: without status migrainosus Intractability: not intractable Qualified Code(s): G43.909 - Migraine, unspecified, not intractable, without status migrainosus Delivery Date: 08/08/20 Delivery Time: 12:23 :: 5 Para:: 4 Gestational weeks:: 38 Gestational days:: 0 Intrapartum Procedures: Secondary Section, Delivery-Low Transverse, Other - General anesthesia due to failed attempted spinal, IV magnesium sulfate Procedures: Other - IV magnesium sulfate /OP Complications: Preeclampsia/GHTN, Other - hypokalemia, headache Discharge Diagnosis: Term -Delivered, Preeclampsia mild/severe, Rubella Immune - Discharge Information Date of Discharge: 08/11/20 Hospital Course: 29-year-old 5 now para 4 admitted at 38 weeks for repeat low transverse section due to preeclampsia with severe features (headache and proteinuria) and prior section x3. She was started on IV magnesium sulfate and prepped for section. Anesthesia was unable to obtain a sp inal so she underwent general anesthesia. Her postoperative course was complicated by mild hypokalemia which resolved with oral potassium intake and a mild headache which resolved with Tylenol and rest. She was discharged to home on postop day #3 with routine discharge instructions and preeclampsia precautions. Discharge Location: Home Disposition: Home self-care Condition: Good Referrals: Shireen Farooq MD [Primary Care Provider] - Activity on Discharge:: Activity as tolerated, Pelvic Rest, No lifting Discharge Diet: General/regular food Additional Patient Instructions (free text): Nina your one week blood pressure check up is on 08/14/20 at 9:45 AM with 's nurses. Homar's appointment is His blood type is O+ Discharge weight 6 lbs 12.2 oz Discharge bilirubin 8.6 Continue to breastfeed him at least every 2-[address] him on his back to sleep in his own bassinet or crib. No loose blankets, bumper pads, stuffed animals or pillows. Thank you for choosing [facility]. If you have any questions or concerns, please don't hesitate to call us at [phone]. Prescriptions (Any new or edited meds): Ibuprofen [Motrin] 200 - 800 mg PO Q6H PRN #100 tab PRN Reason: Pain oxyCODONE HCL/ACETAMINOPHEN [Percocet 5 MG/325 MG] 1 tab PO Q4H PRN #5 tab PRN Reason: Moderate Pain Transmission Status: Received by [facility] Complete Home Medications List: Complete Home Medication List: prenat.vits,amada,goq-dxvm-xveaz 1 tab PO DAILY 01/02/20 hydroxyzine HCl 25 mg tablet 25 mg PO TID PRN #90 tab 08/01/20 sertraline 100 mg tablet 100 mg PO DAILY #30 tab 08/01/20 Ibuprofen [Motrin] 200 - 800 mg PO Q6H PRN #100 tab 08/10/20 oxyCODONE HCL/ACETAMINOPHEN [Percocet 5 MG/325 MG] 1 tab PO Q4H PRN #5 tab 08/10/20 - Plan Discharge to:: Home Follow up in office in:: 1 week - [place] Information Weight (Grams): 3,285 Sex: Male Score 1 min: 7 Score 5 min: 7 Infant Complications: None
== END 2020-08-11 12:00 | disposition home or self-care (01) | DRG 786 ==
LOC: OB 09:25
PROVIDERS: ADMIT Obstetrics & Gynecology; ATTEND Obstetrics & Gynecology
DX: O14.13 Severe pre-eclampsia, third trimester; E87.6 Hypokalemia; O34.211 Maternal care for low transverse scar from previous cesarean delivery; Z37.0 Single live birth; Z3A.38 38 weeks gestation of pregnancy